=== PATIENT | male | born 1965 | race Two or more races ===

== ENCOUNTER 2025-05-15 07:40 | Outpatient (CLI) | payer OTHER | END 2025-05-15 07:43 | disposition home or self-care (01) | LOC: SONOGRAMA 07:40 | PROVIDERS: ATTEND Pathology Anatomic Pathology & Clinical Pathology | DX: C96.9 Malignant neoplasm of lymphoid, hematopoietic and related tissue, unspecified (principal); D34 Benign neoplasm of thyroid gland; E07.89 Other specified disorders of thyroid; E04.2 Nontoxic multinodular goiter ==

== ENCOUNTER 2025-06-17 08:45 | Inpatient (IN) | payer OTHER ==
[~2025-06-17] VITALS: Ht 177.8 cm; Wt 88.5 kg
[2025-06-17] MEDS ORDERED: LOSARTAN (08:57)
[2025-06-17 08:58] VITALS: BP 139/87
[2025-06-17 09:10] LABS: BASO % 0.5 % (0.1-1.2); EOS # 0.13 (0.04-0.54); EOS % 3.2 % (0.7-7.0); LYMPH # 1.21 (1.18-3.74); LYMPH % 29.7 % (19.3-53.1); MEAN PLATELET VOLUME 9.80 fl (9.4-12.4); MONO # 0.43 (0.24-0.82); MONO % 10.5 % (4.7-12.5); NEUT # 2.28 (1.56-6.13); NEUT % 55.9 % (34.0-71.1); RED CELL DISTRIBUTION WIDTH 14.5 % (11.6-14.4)
[2025-06-17 09:13] LABS: URINE APPEARANCE Clear; URINE BILIRRUBIN Negative (NEGATIVE); URINE BLOOD Negative; URINE COLOR Yellow; URINE KETONE Trace (NEGATIVE); URINE LEUKOCYTE Negative; URINE NITRATE Negative; URINE PROTEIN 30 (NEGATIVE); URINE UROBILINOGEN 0.2 E.U./dl
[2025-06-17 09:14] LABS: URINE BACTERIA 5.7 uL (0.0-1933); URINE EPITHELIAL CELLS 1.5 uL (0.0-38.8)
[2025-06-17 09:25] LABS: URINE CAST 0.00 uL (0.0-1.40); URINE GLUCOSE >=1000 MG/DL (NEGATIVE); URINE RBC 1.6 uL (0.0-20.8); URINE WBC 1.5 uL (0.0-23.2)
[2025-06-17 09:41] LABS: INR 0.99
[2025-06-17 09:56] LABS: ALT/SGPT 39.0 U/L (12-78); AST/SGOT 23.0 U/L (15-37); BILIRUBIN TOTAL 1.0 mg/dL (0.3-1.2); BUN CREA RATIO 17.0 (7.0-25.0); CREATININE SERUM 1.1 mg/dL (0.70-1.30); GFR 68.75; GLOBULINA 3.6 G/DL (2.4-3.5); GLUCOSE FASTING 138.0 mg/dL (65-100); OSMOLALITY SERUM 282.0 MOSM/KG (275-295)
[2025-06-17] MEDS ORDERED: XIGDUO XR 10 M1 EAC1 PO (12:28)
[2025-06-23] MEDS ORDERED: CEFAZOLIN SODIUM 1,000 MG VIAL ONE ×2 (09:05→11:06)
[2025-06-23] MEDS ORDERED: COZAAR100 MG (10:07)
[2025-06-23] MEDS ORDERED: DEXAMETHASONE SODIUM PHOSPHATE 4 MG/ML VIAL ONE (10:33)
[2025-06-23] MEDS ORDERED: ONDANSETRON HCL 2 MG/ML VIAL IV PRN (15:15)
[2025-06-23] MEDS ORDERED: ENALAPRILAT DIHYDRATE 1.25 MG/ML VIAL IV PRN (15:15)
[2025-06-23] MEDS ORDERED: DEXTROSE 50 % IN WATER 0.5 G/ML DISP.SYRIN IV PRN (15:30)
[2025-06-23] MEDS ORDERED: INSULIN LISPRO 1,000 UNIT/10 ML UNITS SUBCUTANEO PRN (15:30)
[2025-06-23] MEDS ORDERED: ACETAMINOPHEN 500 MG GEL..CAP PO SCH (17:00)
[2025-06-23] MEDS ORDERED: LIDOCAINE HCL 30 ML,MAG HYDROX/ALUMINUM HYD/SIMETH 30 ML,DIPHENHYDRAMINE HCL 75 MG MM SCH (17:00)
[2025-06-23] MEDS ORDERED: TRAMADOL HCL 50 MG TABLET PO SCH (17:00)
[2025-06-23] MEDS ORDERED: CYCLOBENZAPRINE HCL 5 MG TABLET PO SCH (17:00)
[2025-06-23 19:10] VITALS: BP 169/89; O2SAT 98
[2025-06-23] MEDS ORDERED: PANTOPRAZOLE SODIUM 40 MG/VIAL VIAL IV PUSH SCH (21:00)
[2025-06-23] MEDS ORDERED: Calcium Carbonate 1 TAB TABLET PO SCH (21:00)
[2025-06-23 21:59] VITALS: BP 105/68
[2025-06-23] MEDS ORDERED: CALCITRIOL 0.5 MCG CAPSULE PO NR (22:00)
[2025-06-24] MEDS ORDERED: MAG HYDROX/ALUMINUM HYD/SIMETH 30 ML BLIST.PACK PO ONE (00:05)
[2025-06-24 00:36] VITALS: BP 111/71; O2SAT 98
[2025-06-24 08:36] VITALS: BP 132/84; O2SAT 97
[2025-06-24] MEDS ORDERED: CALCITRIOL 0.5 MCG CAPSULE PO SCH (09:00)
[2025-06-25] MEDS ORDERED: LEVOTHYROXINE SODIUM 137 MCG TABLET PO SCH (06:00)
== END 2025-06-24 15:50 | disposition home or self-care (01) | DRG 626 ==
LOC: O/R 06-23 08:00 → SURH 06-23 08:00 → SURG 06-23 08:00 → SURH 06-23 08:45 → SURG 06-23 17:44
PROVIDERS: ADMIT Surgery; ATTEND Surgery
PROC: 07T10ZZ Resection of Right Neck Lymphatic, Open Approach (ICD-10-PCS; 2025-06-23)
PROC: 00QQ0ZZ Repair Vagus Nerve, Open Approach (ICD-10-PCS; 2025-06-23)
PROC: BW4FZZZ Ultrasonography of Neck (ICD-10-PCS; 2025-06-23)
PROC: 0GTK0ZZ Resection of Thyroid Gland, Open Approach (ICD-10-PCS; principal; 2025-06-23 15:15)
DX: C73 Malignant neoplasm of thyroid gland (principal); C77.0 Secondary and unspecified malignant neoplasm of lymph nodes of head, face and neck; G97.49 Accidental puncture and laceration of other nervous system organ or structure during other procedure